=== PATIENT | female | born 1950 | race Caucasian/White ===

== ENCOUNTER 2021-08-26 10:28 | Observation (INO) ==
[2021-08-26] MEDS ORDERED: Albuterol 2.5 MG/3 ML NEBULIZER IH PRN (10:54)
[2021-08-26] MEDS ORDERED: CeFAZolin Syr 2,000MG/20 ML 2,000 MG/20 ML SYRINGE IVPB ONE (10:54)
[2021-08-26] MEDS ORDERED: Ondansetron 4 MG/2 ML VIAL IVP PRN ×2 (10:56→17:18)
[2021-08-26] MEDS ORDERED: *HR* HYDROmorphone PF 0.5 MG/0.5 ML SYRINGE IVP PRN ×2 (10:56→16:00)
[2021-08-26] MEDS ORDERED: Celecoxib 100 MG CAPSULE PO ONE (10:57)
[2021-08-26] MEDS ORDERED: Ringers Solution, Lactated 1,000 ML IVC SCH ×2 (11:00→17:18)
[2021-08-26] MEDS ORDERED: Vancomycin 1,000 MG VIAL ONE ×2 (11:01→11:35)
[2021-08-26] MEDS ORDERED: Scopolamine Patch 1.5 MG PATCH.TD72 TD ONE (11:26)
[2021-08-26] MEDS ORDERED: Acetaminophen IV 1,000 MG/100 ML BAG IVPB ONE (11:30)
[2021-08-26] MEDS ORDERED: Famotidine 20 MG TABLET PO ONE (11:30)
[2021-08-26] MEDS ORDERED: Ondansetron 4 MG/2 ML VIAL ONE (12:00)
[2021-08-26] MEDS ORDERED: Ropivacaine/PF 0.5% 30 ML VIAL ONE (12:00)
[2021-08-26] MEDS ORDERED: *HR* FentaNYL (PF) 100 MCG/2 ML VIAL ONE (12:00)
[2021-08-26] MEDS ORDERED: Lidocaine HCL 4 ML Topical Solution (Laryng-O-Jet Kit Sterile Pak) TP ONE (12:00)
[2021-08-26] MEDS ORDERED: *HR* Rocuronium Bromide 50 MG/5 ML VIAL ONE (12:00)
[2021-08-26] MEDS ORDERED: *HR* Midazolam HCl 2 MG/2 ML VIAL ONE (12:00)
[2021-08-26] MEDS ORDERED: *HR* Propofol 200 MG/20 ML VIAL IVP ONE (12:00)
[2021-08-26] MEDS ORDERED: ROPIVACAINE/PF/NS 0.25% 1 EACH SYRINGE INTRAART ONE (12:00)
[2021-08-26] MEDS ORDERED: Lidocaine -MPF 2% 2 ML VIAL ONE (12:01)
[2021-08-26] MEDS ORDERED: *HR* Labetalol 20 MG/4 ML SYRINGE IVP ONE (13:18)
[2021-08-26] MEDS ORDERED: Tranexamic Acid 1,000 MG/10 ML VIAL ONE (13:26)
[2021-08-26] MEDS ORDERED: Povidone-Iodine 45 ML, Sodium Chloride IRRigation 1,000 ML IR ONE (13:35)
[2021-08-26] MEDS ORDERED: TOTAL JOINT MIXTURE (100ML) INTRAART ONE (13:35)
[2021-08-26] MEDS ORDERED: EPHEDrine 50 MG/ML VIAL ONE (13:36)
[2021-08-26] MEDS ORDERED: Ketamine HCL *QUVA* 50mg (1mL) SYRINGE ONE (13:54)
[2021-08-26] MEDS: *HR* FentaNYL (PF) 100 MCG/2 ML VIAL IVP PRN ×2 (15:39→15:49)
[2021-08-26] MEDS ORDERED: *HR* Meperidine 25 MG/ML SYRINGE IVP PRN (15:59)
[2021-08-26] MEDS ORDERED: *HR* OxyCODONE Immed Rel 5 MG TABLET PO ONE (16:33)
[2021-08-26] MEDS ORDERED: MOM Conc 10 ML UD.LIQ PO PRN (17:18)
[2021-08-26] MEDS ORDERED: *HR* Promethazine 25 MG/ML VIAL IM PRN (17:18)
[2021-08-26] MEDS ORDERED: *HR* OxyCODONE Immed Rel 5 MG TABLET PO PRN (17:18)
[2021-08-26] MEDS ORDERED: Naloxone 0.4 MG/ML INJ IVP PRN (17:18)
[2021-08-26] MEDS ORDERED: Sennosides 8.6 MG TABLET PO PRN (17:18)
[2021-08-26] MEDS: Ascorbic Acid 500 MG TABLET PO SCH (18:01)
[2021-08-26] MEDS: Ketorolac 30 MG/ML VIAL IVP SCH ×2 (18:36→23:25)
[2021-08-26] MEDS ORDERED: [UNRECOGNIZED DRUG - OTHER] PO SCH (21:00)
[2021-08-26] MEDS ORDERED: VITAMIN D3 PO SCH (21:00)
[2021-08-26] MEDS ORDERED: CALCIUM CARBONATE PO SCH (21:00)
[2021-08-26] MEDS: Metoprolol 100 MG TABLET PO SCH (21:38)
[2021-08-26] MEDS: Cholecalciferol (D-3) 1,000 UNIT (25MCG) TABLET PO SCH (21:38)
[2021-08-26] MEDS: CeFAZolin 2 GM/120 ML BAG IVPB SCH (21:39)
[2021-08-27 04:12] LABS: White Blood Count 12.9 K/mcL (4.3-11.1)
[2021-08-27 04:13] LABS: Basophils % 0.1 %; Hematocrit 36.5 % (35.3-44.9); Hemoglobin 11.9 g/dL (11.5-15.4); Immature Granulocytes % 0.7 % (0-4); Lymphocytes # 0.7 K/mcL (0.6-4.6); Lymphocytes % 5.6 %; Mean Corpuscular HGB Conc 32.6 g/dL (31.6-35.5); Mean Corpuscular Hemoglobin 30.4 pg (28.0-33.3); Mean Corpuscular Volume 93.4 fL (83.0-100.0); Mean Platelet Volume 10.6 fL (9.4-12.4); Monocytes # 0.5 K/mcL (0.0-1.3); Monocytes % 3.5 %; Neutrophils # 11.7 K/mcL (1.6-8.9); Platelet Count 161 K/mcL (140-400); Red Blood Count 3.91 M/mcL (3.82-4.97); Red Cell Distribution Width 14.5 % (11.5-14.5); Segmented Neutrophils % 90.1 %
[2021-08-27 04:33] LABS: BUN/Creatinine Ratio 20 (6-26); Blood Urea Nitrogen 17 mg/dL (8-23); Calcium 8.3 mg/dL (8.6-10.3); Carbon Dioxide 24 mEq/L (23-29); Chloride 106 mEq/L (98-107); Glucose 168 mg/dL (70-105); Osmolality,Calculated 289 (280-300); Potassium 4.5 mEq/L (3.5-5.1); Sodium 137 mEq/L (136-145); eGFR For African Americans > 60 (> 60); eGFR For Non-African Americans > 60 (> 60)
[2021-08-27] MEDS: CeFAZolin 2 GM/120 ML BAG IVPB SCH (06:17)
[2021-08-27] MEDS: Ketorolac 30 MG/ML VIAL IVP SCH ×2 (06:17→13:29)
[2021-08-27] MEDS: Metoprolol 100 MG TABLET PO SCH (07:54)
[2021-08-27] MEDS: Ascorbic Acid 500 MG TABLET PO SCH (07:54)
[2021-08-27] MEDS: Cholecalciferol (D-3) 1,000 UNIT (25MCG) TABLET PO SCH (07:54)
[2021-08-27] MEDS ORDERED: Lactobacillus 1 EACH CAP.SPRINK PO SCH (09:00)
[2021-08-27] MEDS ORDERED: Multivit/Ca/Min/Fe/FA 1 TAB TABLET PO SCH (09:00)
[2021-08-27 14:38] VITALS: BP 96/58; PULSE 53; TEMP 97.2; O2SAT 92
[2021-08-27] MEDS ORDERED: Aspirin Enteric Coated 81 MG Tablet PO SCH (15:59)
== END 2021-08-27 15:49 ==
LOC: SDCAOSI 10:28 → 4WAOSI 16:51 → INTOOBSV 08-27 07:57
PROVIDERS: ADMIT Orthopaedic Surgery; ATTEND Orthopaedic Surgery